=== PATIENT | male | born 1960 | race Caucasian/White ===

== ENCOUNTER 2024-08-23 14:27 | Emergency (ER) | payer OTHER, SELFPAY ==
[2024-08-23 14:40] VITALS: BP 144/100
--- NOTE | 2024-08-23 15:38 | ED.GENMED ---
History of Present Illness
General
Chief Complaint: Skin Surface Trauma
Source: patient
Exam Limitations: none
Time Seen by Provider: 08/23/24 15:00
Nursing documentation reviewed up to this point in time: agreed with
History of Present Illness
History of Present Illness:
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 Patient reports that he was using a router to cut wood when he
lost control of the device and the router went over his left thumb and cut his symptoms. Patient states that since the injury, sensation has remained intact on his left thumb send no difficulties moving it but he does note persistent pain. He
states that he has had his tetanus vaccine within the last 5 years. Patient states that he was not wearing protective close at this time. Patient denies any potential foreign body within the wound. States that when he was cutting the wood, no
piece of wood entered his wound. He denies any other injures. Denies any crush injury to the hand.
Past History
Past History
ED Past Medical History: Other (Fall 2009: Fx L1, R hip, pelvis, R wrist, RSD Nerve damage right hand, Barretts Esopagus, Hiatal hernia, ) and Other ( fractures of the lumbar spine from a fall, direct esophagitis, gastroparesis); Negative HTN
ED Past Surgical History: Orthopedic (Lumbar fusion Rib removed, Right shoulder replacement. ) and Other (Back surgery, fractured spine from a fall from about 10 feet 2008: Had L1 removed and they had to remove a rib to get to it. Also fx right
wrist at the time and had surgery. Surgery for left lung herniation); Negative Cardiac
Social History
Tobacco: Former smoker
Alcohol: None
Drug: None
Personal: Single
Living: alone
Employment: Disabled
Family History
Family History: Other
Review of Systems
Review of Systems
All Other Systems: ROS reviewed and negative except as documented in HPI and ROS
Phy Exam
Physical Exam
Physical Exam:
General: Patient is well appearing and in no acute distress; non-toxic
Skin: 3-4 cm macerated laceration/abrasion noted to the left anterior thumb with active bleeding of an arteriole
Head: Normocephalic, atraumatic
Eyes: Sclera non-icteric. EOMs intact.
Cardiac: Regular rate
Peripheral Vascular: Brisk capillary refill
Pulm: Normal respiratory effort
Musculoskeletal: 5/5 flexion and extension strength against resistance of the left thumb, no tenderness to palpation over the metacarpals or carpals
Neuro: CN II-XII intact, no focal neurologic deficits. Sensation intact good 2 point discrimination.
Psychiatric: Appropriate mood and affect.
Course
Orders/Labs/Results
Orders:
Orders
08/23/24 16:00
CR Finger(s)/thumb Min 2 Vw Lt Urgent
Comment:
Reason For Exam: left thumb crush injury
Vital Signs
Initial and Last Documented VS:
Initial Vital Signs
Temp Pulse Resp BP Pulse Ox
98.4 F 86 18 144/100 98
08/23/24 14:40 08/23/24 14:40 08/23/24 14:40 08/23/24 14:40 08/23/24 14:40
Last Documented Vital Signs
Temp Pulse Resp BP Pulse Ox
98.4 F 86 18 144/100 98
08/23/24 14:40 08/23/24 14:40 08/23/24 14:40 08/23/24 14:40 08/23/24 14:40
Procedures
Laceration Closure
Left Thumb:
Status of Wound: clean
Size of Wound in cm: 3.5
Description of Wound Edges: ragged, surrounded by abrasion, flap-well vascularized and macerated
Preparation: cleaned with saline (thoroughly irrigated with direct pressure irrigation)
Anesthesia: 1% Lidocaine
Revision/Debridement: minor revision
Wound exploration: explored to base- no FB
Type of Closure: single layer closure
Skin Closure Material: 4-0 prolene
Number of sutures: 8
Additional information:
1 figure of eight over arteriole, 7 interrupted sutures over flap
MDM/Problems Addressed
Differential Diagnosis Includes:
ddx include abrasion, laceration, phalanx fracture, neurovascular injury
MDM/Problems Addressed:
This is a 63 y/o male with pmh of barette's esophagus who presents to the ER with concerns of laceration to the left thumb from a woods rider. No total crush injury of the hand, he seemed to loose control of the device. The x-ray is negative for
fracture/radiopague foreign body. No concern for tendon injury based on physical exam however regarding significantly macerated wound did encourage patient to monitor his ROM and follow up with hand surgery. Considering wood saw injury and attempt
shoulder reassess the wound, will start patient on Keflex, patient was thoroughly irrigated. Patient stable for discharge.
*Pulse Oximetry
Patient hypoxic: no
*Critical Care Note
Total Time (30-74mins, 75-104mins- exclusive of procedures): Not Applicable
Data Reviewed
Review of Other/Old Records Reveals: Records (Reviewed discharge summary from 06/16/2015 patient seen for postoperative seroma, reviewed ER physician documentation from 02/09/2021 patient seen for fall off of a ladder)
Source: patient and records
Patient Management
Escalation/DeEscalation of care consider admission/obs:
Admit not indicated, case reviewed with my attending
ED Attending Note
-
Portions of this chart may have been created with voice recognition software.� Occasional wrong word or��sound alike� substitutions may have occurred due to the inherent limitations of voice recognition software.
Discharge Plan
Departure
Patient Disposition: Home (Routine Discharge)
Date of Disposition: 08/23/24
Time of Disposition: 17:25
Patient with high blood pressure during this ER visit?: Yes
Condition: Good
Discharge Problem:
Laceration of thumb without complication
Instructions: Wound Care (DC), Laceration Repair With Stitches (DC)
Prescriptions:
New
cephalexin 500 mg capsule
500 mg PO Q6H 4 Days Qty: 16 0RF
No Action
rabeprazole [AcipHex] 20 MG tablet,delayed release (DR/EC)
20 mg PO BID
lorazepam 1 MG tablet
1 mg PO QPM
potassium chloride [Klor-Con M20] 20 MEQ tablet,ER particles/crystals
20 meq PO BID Qty: 60 0RF
daptomycin 500 MG/10 ML recon soln
500 mg IV DAILY Qty: 22 0RF
Referrals:
Earnest Simmons MD [Active] - Call in 1-3 days for appt
Activity Restrictions/Additional Instructions:
Your stitches need to be removed in 7-10 days. You can return to the emergency department, your pcp, or hand surgery to have them removed. 7 simple interrupted sutures were placed and one figure 8 eight stitch was placed to stop bleeding of an
arteriole. You can expect some bloody to clear drainage from the wound over the next few days. I recommend keeping the wound cover with kerlex wrapping and non-adherent pad. Please keep the stitches dry for 24 hours after 24 hours you can let warm
water with soap run over the wound do not scrub the wound do not use alcohol or hydrogen peroxide.
Keflex has been sent to your pharmacy. You can take one tablet 4 times daily for 5 days.
Please call the attached number to schedule follow up apt with hand surgery.
Please return to the emergency department should you develop loss of sensation in your thumb, inability to move your thumb, pallor, an acute worsening of your symptoms, fevers or chills, or any other signs or symptoms worrisome to you.
Interventions
Interventions:
*Risk Screen - Suicide Last Done: 08/23/24 14:40
*General Assessment Last Done: 08/23/24 14:40
*Neglect/Abuse Screening Last Done: 08/23/24 14:40
*ED COVID-19 Vaccine History Last Done: 08/23/24 14:49
ED-Skin Assessment Last Done: 08/23/24 14:49
Discharge Date and Time
Print Language: NICARAGU[place]
[2024-08-23 17:43] VITALS: BP 144/90
== END 2024-08-23 17:44 | disposition home or self-care (01) ==
LOC: EMR 14:27
PROVIDERS: EMERGENCY PHYSICIAN Emergency Medicine; FAMILY PHYSICIAN Family Medicine
DX: S61.012A Laceration without foreign body of left thumb without damage to nail, initial encounter (principal); W31.2XXA Contact with powered woodworking and forming machines, initial encounter; R03.0 Elevated blood-pressure reading, without diagnosis of hypertension; G90.50 Complex regional pain syndrome I, unspecified; Z96.611 Presence of right artificial shoulder joint; Z87.19 Personal history of other diseases of the digestive system; Z87.891 Personal history of nicotine dependence; Z98.1 Arthrodesis status
CPT/HCPCS: 99283; 12002; 73140

== ENCOUNTER → 2025-03-25 11:12 | Outpatient (REF) | payer OTHER, SELFPAY | LOC: RAD 11:12 | PROVIDERS: ATTENDING PHYSICIAN Family Medicine | DX: M25.551 Pain in right hip (principal); Z98.1 Arthrodesis status; M54.16 Radiculopathy, lumbar region | CPT/HCPCS: 72110; 73502 ==